=== PATIENT | female | born 1995 | race Caucasian/White ===

== ENCOUNTER 2017-07-02 20:58 | Emergency (ER) | payer OTHER, MEDICAID ==
[~2017-07-02] VITALS: Ht 157.5 cm; Wt 45.0 kg
[2017-07-02 21:10] VITALS: BP 125/79; PULSE 103; RESP 16; TEMP 98.9; O2SAT 99
[2017-07-02] MEDS ORDERED: TETANUS/DIPHTHERIA TOXOID ADULT 0.5 ML VIAL IM ONE ×2 (21:30)
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
== END 2017-07-02 22:08 | disposition home or self-care (01) ==
LOC: NEPD 20:58
DX: S51.011A Laceration without foreign body of right elbow, initial encounter (principal); S70.211A Abrasion, right hip, initial encounter; V49.9XXA Car occupant (driver) (passenger) injured in unspecified traffic accident, initial encounter; Z23 Encounter for immunization
CPT/HCPCS: 84703; 90471; 90714